=== PATIENT | female | born 1980 | race Caucasian/White ===

== ENCOUNTER 2016-12-31 11:31 | Emergency (ER) | payer OTHER ==
[~2016-12-31] VITALS: Ht 162.6 cm; Wt 55.1 kg
[2016-12-31 11:33] VITALS: TEMP 36.6; Ht 162.6 cm; Wt 55.1 kg
[2016-12-31] MEDS ORDERED: KETOROLAC TROMETHAMINE 30 MG/ML VIAL IV STA (11:57)
[2016-12-31] MEDS ORDERED: SODIUM CHLORIDE 0.9% 1000ML 1,000 ML IV STA ×2 (11:57)
[2016-12-31] MEDS ORDERED: ONDANSETRON INJ 2 MG/ML 2 ML VIAL IV STA (11:57)
[2016-12-31] MEDS ORDERED: METR-162 PO (12:17)
[2016-12-31] MEDS ORDERED: LACT10CA3 PO (12:17)
[2016-12-31 12:22] LABS: BASO % 0.3 %; BASO ABS # 0.02 K/uL (0-0.2); COMPLETE YES; EOS % 1.8 %; HEMATOCRIT 42.7 % (37-47); IG% 0.1 %; LYMPH % 26.2 %; LYMPH ABS # 1.76 K/uL (1.2-3.4); MEAN CELL VOLUME 86.3 fL (80-100); MEAN CORPUSCULAR HEMOGLOBIN 30.9 pg (25-34); MEAN CORPUSCULAR HGB CONC 35.8 g/dl (32-36); MEAN PLATELET VOLUME 9.3 fL (7.4-10.4); MONO % 6.7 %; NEUT % 64.9 %; PLATELET COUNT 287 K/uL (130-400); RED BLOOD COUNT 4.95 M/uL (4.2-5.4); WHITE BLOOD COUNT 6.73 K/uL (4.8-10.8)
[2016-12-31 12:42] LABS: CREATININE 0.79 mg/dl (0.60-1.20)
[2016-12-31 12:43] LABS: BUN/CREATININE RATIO 13.3 (10-20); POTASSIUM 4.2 mmol/L (3.5-5.1)
[2016-12-31 12:45] LABS: ALB/GLOB RATIO 1.2 (0.9-2)
[2016-12-31 13:10] LABS: URINE APPEARANCE CLEAR (CLEAR); URINE BILIRUBIN NEG (NEG); URINE COLOR DK YELLOW; URINE EPITHELIAL CELL AUTO >30 /lpf (0-5); URINE NITRITE NEG (NEG); URINE PH 5.5 (4.5-7.5); UROBILINOGEN NEG (NEG); ZZUR CULT IF INDIC CLEAN CATCH NO
[2016-12-31 13:11] LABS: MANUAL MICROSCOPIC REQUIRED? NO; REVIEW REQ? NO
--- NOTE | 2016-12-31 13:14 | EMERGENCY ROOM VISIT NOTE ---
History First contact with patient: 11:44 Chief Complaint: VOMITING Stated Complaint: VOMITING,DIARREAH,NAUSEA,C-DIFF History of Present Illness The patient is a 36 year old female who presents to the Emergency Room with complaints of vomiting and diarrhea. The patient reports that she took a 7 day course of Augmentin for a sinus infection 3 weeks ago and developed diarrhea soon afterward. She reports that she saw her primary care provider 3 days ago and they took a stool sample. They called her 2 days ago and told her that she had a positive C. difficile test. She was started on Flagyl at night. She has taken less than 48 hours worth of the medication. She states that she has had persistent diarrhea as well as a few episodes of vomiting and decreased appetite. She rates her overall discomfort a 5/10. She states she has crampy pain in the lower abdomen. She is concerned because she has not been able to keep any foods or fluids down. She denies any fevers/chills, chest pain, shortness of breath or urinary symptoms. Review of Systems A complete 10-point Review of Systems was discussed with the patient, with pertinent positives and negatives listed in the History of Present Illness. All remaining Review of Systems questions can be considered negative unless otherwise specified. Past Medical/Surgical History Medical Problems: (1) Asthma (2) Difficulty breathing (3) Right foot injury Family History Patient reports no known family medical history. Social History Smoking Status: Current Every Day Smoker Marital Status: single Housing Status: lives with family Current/Historical Medications Scheduled Lactobacillus-Inulin (Culturelle), 1 CAP PO BID Metronidazole (Flagyl), 500 MG PO TID Ondasetron Odt (Zofran Odt), 4 MG SL Q6H Allergies Coded Allergies: Erythromycin (Verified Allergy, Intermediate, vomiting, 12/31/16) Morphine (Verified Adverse Reaction, Intermediate, " makes me want to rip my skin off", 12/31/16) Physical Exam Vital Signs Date Time Temp Pulse Resp B/P Pulse Ox O2 Delivery O2 Flow Rate FiO2 12/31/16 14:17 66 18 102/50 100 12/31/16 13:44 64 16 99/47 100 Room Air 12/31/16 13:00 60 16 95/47 100 Room Air 12/31/16 11:33 36.6 93 16 124/76 99 Room Air Physical Exam VITALS: Vitals are noted on the nurse's note and reviewed by myself. Vital signs stable. GENERAL: This is a 36-year-old female, in no acute distress, nondiaphoretic, well-developed well-nourished. SKIN: Capillary reflex less than 2 seconds. HEENT: PERRLA. Mucous membranes moist. Neck is supple without nuchal rigidity. HEART: Regular rate and rhythm without murmurs gallops or rubs. LUNGS: Clear to auscultation bilaterally without wheezes, rales or rhonchi. ABDOMEN: Positive bowel sounds x 4. Soft, minimal tenderness over the lower abdomen. No guarding or rebound tenderness. NEURO: Patient was alert and oriented to person place and time. Medical Decision & Procedures Laboratory Results 12/31/16 12:11 Red Blood Count 4.95, Mean Corpuscular Volume 86.3, Mean Corpuscular Hemoglobin 30.9, Mean Corpuscular Hemoglobin Concent 35.8, Mean Platelet Volume 9.3, Neutrophils (%) (Auto) 64.9, Lymphocytes (%) (Auto) 26.2, Monocytes (%) (Auto) 6.7, Eosinophils (%) (Auto) 1.8, Basophils (%) (Auto) 0.3, Neutrophils # (Auto) 4.37, Lymphocytes # (Auto) 1.76, Monocytes # (Auto) 0.45, Eosinophils # (Auto) 0.12, Basophils # (Auto) 0.02 12/31/16 12:11 Test 12/31/16 12:11 12/31/16 12:40 White Blood Count 6.73 K/uL (4.8-10.8) Red Blood Count 4.95 M/uL (4.2-5.4) Hemoglobin 15.3 g/dL (12.0-16.0) Hematocrit 42.7 % (37-47) Mean Corpuscular Volume 86.3 fL (80-100) Mean Corpuscular Hemoglobin 30.9 pg (25-34) Mean Corpuscular Hemoglobin Concent 35.8 g/dl (32-36) Platelet Count 287 K/uL (130-400) Mean Platelet Volume 9.3 fL (7.4-10.4) Neutrophils (%) (Auto) 64.9 % Lymphocytes (%) (Auto) 26.2 % Monocytes (%) (Auto) 6.7 % Eosinophils (%) (Auto) 1.8 % Basophils (%) (Auto) 0.3 % Neutrophils # (Auto) 4.37 K/uL (1.4-6.5) Lymphocytes # (Auto) 1.76 K/uL (1.2-3.4) Monocytes # (Auto) 0.45 K/uL (0.11-0.59) Eosinophils # (Auto) 0.12 K/uL (0-0.5) Basophils # (Auto) 0.02 K/uL (0-0.2) RDW Standard Deviation 39.1 fL (36.4-46.3) RDW Coefficient of Variation 12.3 % (11.5-14.5) Immature Granulocyte % (Auto) 0.1 % Immature Granulocyte # (Auto) 0.01 K/uL (0.00-0.02) Anion Gap 10.0 mmol/L (3-11) Est Creatinine Clear Calc Drug Dose 83.4 ml/min Estimated GFR () 110.1 Estimated GFR (Non- 95.0 BUN/Creatinine Ratio 13.3 (10-20) Calcium Level 9.0 mg/dl (8.5-10.1) Total Bilirubin 0.5 mg/dl (0.2-1) Aspartate Amino Transf (AST/SGOT) 13 U/L (15-37) Alanine Aminotransferase (ALT/SGPT) 18 U/L (12-78) Alkaline Phosphatase 40 U/L (45-117) Total Protein 7.2 gm/dl (6.4-8.2) Albumin 3.9 gm/dl (3.4-5.0) Globulin 3.3 gm/dl (2.5-4.0) Albumin/Globulin Ratio 1.2 (0.9-2) Lipase 158 U/L (73-393) Urine Color DK YELLOW Urine Appearance CLEAR (CLEAR) Urine pH 5.5 (4.5-7.5) Urine Specific [place] 1.020 (1.000-1.030) Urine Protein NEG (NEG) Urine Glucose (UA) NEG (NEG) Urine Ketones 2+ (NEG) Urine Occult Blood NEG (NEG) Urine Nitrite NEG (NEG) Urine Bilirubin NEG (NEG) Urine Urobilinogen NEG (NEG) Urine Leukocyte Esterase SMALL (NEG) Urine WBC (Auto) 1-5 /hpf (0-5) Urine RBC (Auto) 0-4 /hpf (0-4) Urine Hyaline Casts (Auto) 1-5 /lpf (0-5) Urine Epithelial Cells (Auto) >30 /lpf (0-5) Urine Bacteria (Auto) NEG (NEG) Urine Test NEG (NEG) Medications Administered Medications (Trade) Dose Ordered Sig/Nelson Route Start Time Stop Time Status Last Admin Dose Admin Sodium Chloride 1,000 ml @ 999 mls/hr Q1H1M STAT IV 12/31/16 11:57 12/31/16 12:57 DC 12/31/16 12:37 999 MLS/HR Sodium Chloride (Nss 1000ml) 1,000 ml @ 999 mls/hr Q1H1M STAT IV 12/31/16 11:57 12/31/16 12:57 DC 12/31/16 12:38 999 MLS/HR Ondansetron HCl (Zofran Inj) 4 mg NOW STAT IV 12/31/16 11:57 12/31/16 12:00 DC 12/31/16 12:38 4 MG Ketorolac Tromethamine (Toradol Inj) 30 mg NOW STAT IV 12/31/16 11:57 12/31/16 12:00 DC 12/31/16 12:39 30 MG Medical Decision Differential diagnosis includes C. difficile diarrhea, bowel obstruction, colitis, appendicitis, cholecystitis, gastroenteritis, failed outpatient therapy , among others. The patient was evaluated as above. Labs were drawn and IV access was obtained. Imaging studies were performed and read by radiology as above. The patient was medicated with 2 L normal saline solution, 4 mg Zofran IV and 30 mg Toradol IV. The patient was reassessed multiple times during their stay in the emergency department and remained in stable condition. The patient is a 36-year-old female who presents today complaining of C. difficile. The patient had a positive C. difficile test 2 days ago. She has been on less than 48 hours and Flagyl. She has continued diarrhea as well as a few episodes of vomiting. She is concerned about dehydration. The patient's labs revealed no leukocytosis, anemia or concerning electrolyte abnormalities. Urinalysis was not suggestive of infection. Urinalysis did show ketones within the urine, likely due to mild dehydration. The patient felt much better after IV hydration and IV Zofran. I do not feel she has failed outpatient treatment at this time, as she has only been taking the Flagyl for less than 2 days. She was able to tolerate crackers and Gatorade. She was instructed to continue the Flagyl at home and return sooner for any worsening symptoms. She was given a prescription for Zofran and encouraged to continue to push fluids. Based on the patient's presentation, lab results, and imaging studies, I feel the patient is stable for outpatient treatment. The patient's case was reviewed with Dr. Hancock, ED attending physician, who agreed with my assessment and treatment plan. Discharge instructions were reviewed with the patient. The patient verbalized understanding of my assessment and treatment plan and was discharged home in good condition. Impression Primary Impression: C. difficile diarrhea Departure Information Dispostion Home / Self-Care Condition GOOD Prescriptions Ondasetron Odt (ZOFRAN ODT) 4 Mg Tab 4 MG SL Q6H for Nausea, #20 TAB Prov: Shanti Mathew ., SARITA 12/31/16 Referrals No Doctor, Assigned (PCP) Patient Instructions My [facility] Additional Instructions You have been treated in the Emergency Department for your C. difficile diarrhea and dehydration. You have been prescribed Zofran to be used for any nausea or vomiting. Take as prescribed. For pain control, you can use the following [id number] medicines (if >12 yo): - Regular strength (325mg/tab) Tylenol (acetaminophen) 2 tabs every 4-6 hours as needed. Do not exceed 12 tablets in a 24 hour period. Avoid taking more than 4 grams (4000 mg) of Tylenol per day. This includes any other sources of acetaminophen you may take on a regular basis. - Regular strength (200 mg/tab) Advil (ibuprofen) 1-2 tabs every 4-6 hours as needed. Do not exceed a dose of 3200 mg per day. Drink plenty of water and stay well hydrated. Follow-up with your primary care provider in 2-3 days for a recheck. Return to the emergency department if your symptoms persist despite treatment plan outlined above or if the following symptoms occur: Fevers, worsening abdominal pain, vomiting not relieved by the antinausea medication, or any other new/concerning symptoms.
[2016-12-31] MEDS ORDERED: ONDA4TAB10 SL (13:38)
[2016-12-31 14:17] VITALS: BP 102/50; PULSE 66; O2SAT 100
== END 2016-12-31 14:19 | disposition home or self-care (01) ==
LOC: C.EDB 11:32 → C.EDA 14:19
DX: A04.7 Enterocolitis due to Clostridium difficile (principal); J45.909 Unspecified asthma, uncomplicated; F17.200 Nicotine dependence, unspecified, uncomplicated; Z88.3 Allergy status to other anti-infective agents; Z88.5 Allergy status to narcotic agent

== ENCOUNTER 2022-02-26 10:06 | Observation (INO) ==
--- NOTE | 2022-01-14 13:54 | Anesthesiology Consultation ---
Date of Service January 14, 2022 Assessment & Plan (1) Encounter for pre-operative examination: Chart Review Chart Review: Acceptable Risk for Surgery (pending results of ECHO if available and preop Covid testing results ) and Patient NOT seen in Pre Admission Testing ECHO ordered by PCP for fatigue scheduled 01/21/22 at 1000am at [facility]. Will attempt to get results if available prior to surgery. -Will check EKG for DOS due to hypercholesteremia - Check test AM DOS Per nursing assessment 01/14/2022, patient denies any recent travel. No known Covid infection in the past 90 days. Patient is fully vaccinated for Covid. No known Covid positive exposures. Pt had recent URI- had abx and prednisone- feeling much better- did speak with patient on 01/14/22- pt will call if symptoms not resolved by DOS. Preop Covid testing scheduled 01/19/22= will await results. Pt seen by lipid clinic 01/04/22= No past cardiac history personally with p rojas. Does have positive family history for premature atherosclerosis on father side. Patient is active and has no exertional symptoms at this time. 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 Triglycerides 109, total cholesterol 262, non-HDL cholesterol 204, HDL cholesterol 58, LDL cholesterol 182. Patient started on atorvastatin and Zetiawe will recheck lipid in 3 months. Pt seen by PCP 12/07/21= seen for follow up to discuss blood work- labs ordered for severe fatigue. Low Vit D. ECHO ordered for fatigue. Started on Vitamin D supplement. History Surgery Operation Date: 01/22/22 08:30 Proposed Procedures p Total Laparoscopic Hysterectomy, Left Salphingo-oophorectomy, Cystoscopy, Possible Laparatomy - Delmer Leos MD Height/Weight Height: 5 ft 4.25 in Weight: 61.235 kg Allergies Allergy/AdvReac Type Severity Reaction Status Date / Time erythromycin base Allergy Intermediate vomiting Verified 01/14/22 11:47 morphine AdvReac Intermediate " makes me Verified 01/14/22 11:47 want to rip my skin off" fentanyl AdvReac migraine, Verified 01/14/22 11:47 n/v Medications Home Medications Medication Instructions Recorded Confirmed Last Taken albuterol sulfate 90 mcg/actuation 1 inh INHALATION QID PRN 01/14/22 01/14/22 Unknown aerosol inhaler amoxicillin 875 mg-potassium 1 tab PO BID 01/14/22 01/14/22 Unknown clavulanate 125 mg tablet atorvastatin 40 mg tablet (Lipitor) 40 mg PO QAM 01/14/22 01/14/22 Unknown azelastine 137 mcg (0.1 %) nasal 1 spray INTRANASAL BID 01/14/22 01/14/22 Unknown spray aerosol ergocalciferol (vitamin D2) 1,250 1,250 mcg PO WK 01/14/22 01/14/22 Unknown mcg (50,000 unit) capsule (Vitamin D2) ezetimibe 10 mg tablet (Zetia) 10 mg PO QAM 01/14/22 01/14/22 Unknown pramipexole 0.5 mg tablet 0.5 mg PO HS 01/14/22 01/14/22 Unknown prednisone 10 mg tablets in a dose 10 mg PO UD 01/14/22 01/14/22 Unknown pack triamcinolone acetonide 55 mcg 1 spray INTRANASAL BID 01/14/22 01/14/22 Unknown nasal spray aerosol Past Medical History Medical History (Updated 01/14/22 @ 13:52 by Lissy Magana PA-C) Asthma Rare use of PRN inh Dysmenorrhea Essential tremor GERD (gastroesophageal reflux disease) Diet controlled History of anesthesia reaction Wakes up either angry/combative/emotional History of gestational diabetes History of kidney stones HLD (hyperlipidemia) Monoallelic mutation of LDLR gene Menorrhagia Migraines PCOS (polycystic ovarian syndrome) RLS (restless legs syndrome) Upper respiratory infection Reason for abx/steroid - reports symptoms improving Uterine fibroid Past Surgical History Surgical History H/O uvulectomy History of colonoscopy History of umbilical hernia repair S/P section x 2 S/P tonsillectomy and adenoidectomy Social History Smoking Status: Former smoker Do You Dip or Chew Tobacco: No Smoking End Date: 2 years ago Hx Alcohol Use: No Hx Substance Use: No substance use type: does not use Testing Laboratory Results 01/11/22= WBC: 11.39 H/H: 14.4/42.9 PLATELETS: 347 SODIUM: 136 POTASSIUM: 4.7 CHLORIDE: 101 CO2: 24 BUN: 17 CREATININE: 0.9 GLUCOSE: 99
[~2022-02-26 10:06] MED LIST: CITRIC ACID/SODIUM CITRATE 15 ML UDC PO SCH; LACTATED RINGER'S 1,000 ML IV SCH; LR 15ML/HR IV SCH; ceFAZolin 2,000 MG in SYRINGE 0 ML IV SCH; ceFAZolin 2000MG 2,000 MG/15 ML SYR IV SCH
[2022-02-26] MEDS ORDERED: BUPIVACAINE 0.5 % 5 MG/1 ML MPF 30ML VIAL ONE (10:33)
[2022-02-26] MEDS ORDERED: EPINEPHrine INJ 1 MG/ML AMP ONE (10:33)
[2022-02-26] MEDS ORDERED: PROPOFOL IV EMULSION 10 MG/ML 20 ML VIAL IV ONE (10:41)
[2022-02-26] MEDS ORDERED: GLYCOPYRROLATE 0.2 MG/ML VIAL ONE (10:41)
[2022-02-26] MEDS ORDERED: ONDANSETRON INJ 2 MG/ML 2 ML VIAL ONE (10:41)
[2022-02-26] MEDS ORDERED: NEOSTIGMINE METHYLSULFATE 1 MG/ML 10ML VIAL ONE (10:41)
[2022-02-26] MEDS ORDERED: MIDAZOLAM HCL 1 MG/ML 2ML VIAL ONE (10:41)
[2022-02-26] MEDS ORDERED: ROCURONIUM BROMIDE 10 MG/ML 5 ML VIAL IV ONE ×3 (10:41→13:34)
[2022-02-26] MEDS ORDERED: DEXAMETHASONE SOD INJ 4 MG/ML VIAL ONE (10:41)
[2022-02-26] MEDS ORDERED: SCOPOLAMINE 1 MG TDSY TD ONE ×2 (10:52→10:58)
[2022-02-26] MEDS ORDERED: HYDROmorphone INJ 2 MG/ML SYR/VIAL ONE (11:06)
[2022-02-26 11:08] LABS: Basophils # (auto) 0.02 K/uL (0-0.2); Basophils % (auto) 0.3 %; Eosinophils # (auto) 0.14 K/uL (0-0.5); Eosinophils % (auto) 2.3 %; Hematocrit (blood only) 41.9 % (37-47); Hemoglobin 14.3 g/dL (12.0-16.0); Immature Granulocytes # (auto) 0.01 K/uL (0.00-0.02); Immature Granulocytes % (auto) 0.2 %; Lymphocytes # (auto) 1.77 K/uL (1.2-3.4); Lymphocytes % (auto) 29.4 %; Mean Corpuscular Hemoglobin 30.5 pg (25-34); Mean Corpuscular Volume 89.3 fL (80-100); Monocytes # (auto) 0.41 K/uL (0.11-0.59); Monocytes % (auto) 6.8 %; Neutrophils # (auto) 3.68 K/uL (1.4-6.5); Platelet Count 268 K/uL (130-400); RDW Coefficient of Variation 12.6 % (11.5-14.5); RDW Standard Deviation 40.9 fL (36.4-46.3); Red Blood Count 4.69 M/uL (4.2-5.4); White Blood Count 6.03 K/uL (4.8-10.8)
[2022-02-26] MEDS ORDERED: DexMEDEtomidine HCL IV 100 MCG/ML VIAL IV ONE (11:10)
[2022-02-26] MEDS ORDERED: ACETAMINOPHEN 1000 MG/100 ML IV IV ONE (11:10)
[2022-02-26 11:14] LABS: Mean Corpuscular Hgb Conc 34.1 g/dL (32-36)
[2022-02-26] MEDS ORDERED: PROMETHAZINE HCL 6.25 MG in SODIUM CHLORIDE 0.9% 50 ML IV PRN (12:17)
[2022-02-26] MEDS ORDERED: ONDANSETRON INJ 2 MG/ML 2 ML VIAL IV PRN ×2 (12:17→15:53)
[2022-02-26] MEDS ORDERED: ATROPINE SULFATE 0.1 MG/ML 10ML SYR IV PRN (12:17)
[2022-02-26] MEDS ORDERED: ePHEDrine sulfate 50 MG/ML AMP IV PRN (12:17)
--- NOTE | 2022-02-26 12:31 | History & Physical Bridge Note ---
Date of Service February 26, 2022 History & Physical Bridge Note I have examined the patient, reviewed the History & Physical and in the interval since the performance of the History & Physical I have noted the following changes of clinical significance: no changes noted
[2022-02-26] MEDS ORDERED: METHYLENE BLUE 0.5% 10 ML VIAL ONE (14:45)
[2022-02-26] MEDS ORDERED: FLOSEAL HEMOSTATIC MATRIX 10ML TOP ONE (14:46)
[2022-02-26] MEDS ORDERED: KETOROLAC 30 MG/ML VIAL ONE (15:15)
[2022-02-26] MEDS: HYDROmorphone INJ 1 MG/ML SYRINGE IV PRN ×4 (15:39→15:56)
[2022-02-26] MEDS ORDERED: MAGNESIUM HYDROXIDE SUSP 30 ML UDC PO PRN (15:53)
[2022-02-26] MEDS ORDERED: ZOLPIDEM TARTRATE 5 MG TAB PO PRN (15:53)
[2022-02-26] MEDS ORDERED: PROMETHAZINE HCL 25 MG in SODIUM CHLORIDE 0.9% 50 ML IV PRN (15:53)
[2022-02-26] MEDS ORDERED: bisacodyL 10 MG SUPP PR PRN (15:53)
[2022-02-26] MEDS ORDERED: PROMETHAZINE HCL 12.5 MG in SODIUM CHLORIDE 0.9% 50 ML IV PRN (15:53)
[2022-02-26] MEDS ORDERED: SIMETHICONE 80 MG CHEW PO PRN (15:53)
[2022-02-26] MEDS ORDERED: oxyCODONE/ACETAMINOPHEN 5mg/325mg TAB PO PRN (15:53)
--- NOTE | 2022-02-26 16:00 | Anesthesiology Progress Note ---
Date of Service February 26, 2022 Anesthesia Post Procedure Vital Signs Vital Signs: Temp Pulse Pulse Resp BP Pulse Ox 02/26/22 15:50 61 15 119/64 98 02/26/22 15:40 66 14 119/68 99 02/26/22 15:34 97.0 F L 74 12 116/68 98 02/26/22 10:22 98.4 F 58 L 18 126/72 99 Pain Intensity Abdomen: Pain Intensity: 8 Transfer of Care Handoff Completed per policy Notes Mental Status: alert / awake / arousable and participated in evaluation Patient Amnestic to Procedure: Yes Nausea / Vomiting: adequately controlled Pain: adequately controlled Airway Patency, RR, SpO2: stable & adequate BP & HR: stable & adequate Hydration State: stable & adequate Anesthetic Complications: no major complications apparent and Pt Satisfied with anesthetic care
--- NOTE | 2022-02-26 17:33 | Operative Report (OR) ---
DATE OF SURGERY: 02/26/2022. INDICATION FOR SURGERY: This is a 41-year-old with menorrhagia and chronic pelvic pain. POSTOPERATIVE DIAGNOSES: This is a 41-year-old with menorrhagia and chronic pelvic pain. SURGEON: Delmer Leos MD. RAWHIDE TRIMMER: VAN Leiva. ATTESTATION FOR RAWHIDE TRIMMER: Network Associate was necessary to help with retraction and manipulation of instr uments in order to provide for safe surgery. ESTIMATED BLOOD LOSS: 10 mL. INTRAVENOUS FLUIDS: 1300 mL. URINE OUTPUT: 100 mL of clear urine at the end of procedure. ANESTHESIA: General. COMPLICATIONS: None. DRAINS: None. SPECIMEN: Uterus, left tube and ovary as well as right fallopian tube. DESCRIPTION OF PROCEDURE: The patient was taken to the operating room where she was prepped and drap ed in normal sterile fashion in dorsal lithotomy position after timeout was called. A Chun catheter was placed in the bladder. A weighted speculum was placed in the vagina. Damon retractor was used t o retract the anterior part of the vagina. A VCare uterine manipulator was placed and sutured into t he cervix. This was to help manipulate the uterus during laparoscopy. Attention was paid to the abdominal part of the procedure where a supraumbilical incision was made an d carried down to the fascia with an 11 blade. A Veress needle was introduced into the abdomen at a 45-degree angle while tenting up the abdomen. A water drop and suction test was performed. Abdomen was insufflated with 3 L of CO2 gas. Three more accessory ports were placed on the left, two ____ po rts and one 11 mm port respectively. These were all placed under direct visualization after the supr aumbilical placement of the trocar was performed. These were nonbladed trocars and once again were a ll done under direct visualization. Findings of the abdomen showed a 10-week size uterus, left tube and ovary had some adhesions. The pa tient had prior section and bladder was adherent to the uterus. On the right, the fallopian tube and ovary appeared grossly normal. Rest of the pelvic exam was unremarkable. LigaSure was pas sed through the left accessory port. The left round ligament, fallopian tube and infundibulopelvic wa s grabbed and fulgurated in sequence. There was good hemostasis. This allowed for opening of the le ft anterior leaf of the broad ligament. Same procedure was performed on the contralateral side. The re was good hemostasis. The anterior broad ligament was dissected and carried out to the mid-section of the vesicouterine per itoneum over the bladder using the Harmonic scalpel. Same procedure was performed on the contralater al side. Because of previous section, there were some adhesions, but this dissection was ca refully performed without difficulty. The posterior broad ligament peritoneum was carefully dissecte d also from both sides over the uterosacral arch in order to display the ureters laterally. Using traction and countertraction, the [place] retractor and irrigation probe was used to further d issect the bladder off the lower segment of the uterus. Bladder pillars and pubovesical fascia was d issected as well. The Harmonic scalpel was used to obtain hemostasis when needed. Uterine manipulat or was now palpable over the vaginal tissue. The right uterine pedicle was skeletonized and coagulat ed with LigaSure. Good hemostasis was obtained. Same procedure was performed on the contralateral s marci. The cardinal ligaments were transected on both sides. Once good hemostasis was obtained, colpo quinn was performed using the LigaSure hook from both sides. Uterus was removed from the vagina while still attached to the uterine manipulator. The bulb multi line claims adjuster d to the uterine manipulator was reinserted into the vagina to establish pneumoperitoneum. With a gr asper, the remaining section of the left fallopian tube and ovary was positioned anteromedially and t ransected. On the right, the right fallopian tube was transected and the ovary on the right is conse rved. These were all removed through the vagina. EndoStitch closure device was passed through the 10 mm port on the left, and using the [place] grasp er for traction, the colpotomy closure was performed. Uterosacral ligaments incorporated into the c losure in order to decrease the risks of prolapse. Lapra-Tys were used with the EndoStitch. Once ag ain, hemostasis was obtained. A 10 mm trocar was removed and a Maynor-Paco was placed through th e 10 mm port and the 10 mm port was closed under direct visualization with Vicryl. The remainder of the 5 mm incision sites are closed with Dermabond. Attention was paid to the cystoscopy part of the procedure. The patient had been given indigo krysta e earlier. A cystoscope was placed into the bladder after removing the catheter. There was no traum a or damage to the bladder. There are no lesions or masses seen in the bladder. A bubble was presen t in the bladder, showing a closed loop. Both ureteral orifices were seen. Urine was seen injecting from both of them without difficulty. Scope was removed. All instruments were removed from the abdomen and the vagina as stated above and accounted for x2 inc luding sponges and needles. The patient was returned to recovery in stable condition. Job ID: [id number]
[2022-02-26] MEDS: IBUPROFEN 600 MG TAB PO PRN (19:44)
[2022-02-26] MEDS: oxyCODONE/ACETAMINOPHEN 5mg/325mg TAB PO PRN (19:44)
[2022-02-26] MEDS: DOCUSATE SODIUM 100 MG CAP PO SCH (20:01)
[2022-02-26] MEDS: LACTATED RINGER'S 1,000 ML IV SCH (22:54)
[2022-02-27] MEDS: CHECK SCOPOLAMINE PATCH PLACEMENT SCH ×2 (00:10→08:49)
[2022-02-27] MEDS: IBUPROFEN 600 MG TAB PO PRN ×3 (00:22→09:12)
[2022-02-27] MEDS: oxyCODONE/ACETAMINOPHEN 5mg/325mg TAB PO PRN ×2 (04:41→09:13)
[2022-02-27] MEDS: LACTATED RINGER'S 1,000 ML IV SCH (06:13)
--- NOTE | 2022-02-27 06:41 | Electrocardiogram Report ---
Test Reason : Blood Pressure : / mmHG Vent. Rate : 060 BPM Atrial Rate : 060 BPM P-R Int : 160 ms QRS Dur : 082 ms QT Int : 436 ms P-R-T Axes : 039 056 062 degrees QTc Int : 436 ms Normal sinus rhythm with sinus arrhythmia Normal ECG When compared with ECG of 15-FEB-2020 16:41, No significant change was found Confirmed by Maciel Muro ([id number]) on 02/27/2022 6:41:22 AM Referred By: Delmer Leos Confirmed By:Maciel Muro
[2022-02-27 08:38] LABS: Hematocrit (blood only) 33.5 % (37-47); Hemoglobin 11.5 g/dL (12.0-16.0); Immature Granulocytes # (auto) 0.02 K/uL (0.00-0.02); Immature Granulocytes % (auto) 0.2 %; Lymphocytes # (auto) 1.79 K/uL (1.2-3.4); Lymphocytes % (auto) 18.2 %; Mean Corpuscular Hemoglobin 30.7 pg (25-34); Mean Corpuscular Hgb Conc 34.3 g/dL (32-36); Mean Corpuscular Volume 89.3 fL (80-100); Mean Platelet Volume 10.4 fL (7.4-10.4); Monocytes # (auto) 0.89 K/uL (0.11-0.59); Monocytes % (auto) 9.1 %; Neutrophils # (auto) 7.12 K/uL (1.4-6.5); Neutrophils % (auto) 72.5 %; Platelet Count 242 K/uL (130-400); RDW Coefficient of Variation 12.8 % (11.5-14.5); RDW Standard Deviation 42.1 fL (36.4-46.3); Red Blood Count 3.75 M/uL (4.2-5.4); White Blood Count 9.82 K/uL (4.8-10.8)
[2022-02-27] MEDS: DOCUSATE SODIUM 100 MG CAP PO SCH (08:49)
[2022-02-27 09:09] LABS: BUN Creatinine Ratio 16.7 (10-20); Calcium 8.4 mg/dl (8.5-10.1); Creatinine Clr Calc Pharmacy 75.4 ml/min; Est GFR (African American) 98.7 ml/min; Est GFR (Non-African American) 85.1 ml/min
--- NOTE | 2022-02-27 09:12 | Gynecologic Progress Note ---
Date of Service February 27, 2022 Assessment & Plan (1) S/P laparoscopic hysterectomy: Plan: pt doing well no complaints d/c home with instructions Admission and Anticipated Discharge Date Admission Date: February 26, 2022 Results & Data ([facility]) Vital Signs (Past 12 Hours) Vital Signs Temp Pulse Resp BP Pulse Ox 02/27/22 04:30 37.0 C 56 L 16 117/61 100 02/27/22 00:20 36.7 C 64 17 121/73 98
--- NOTE | 2022-02-27 10:17 | Discharge Summary (DS) ---
DATE OF ADMISSION: 02/26/2022. DATE OF DISCHARGE: 02/27/2022. CHIEF COMPLAINT: This is a 41-year-old with menorrhagia and left-sided chronic pelvic pain, who unde rwent total laparoscopic hysterectomy with left salpingo-oophorectomy and right salpingectomy. Detai ls of surgery is in the surgical record and surgical notes. Surgery otherwise was unremarkable. The patient did well, was kept in observation and has been discharged to home this morning in stable con dition. PAST MEDICAL HISTORY: No history of diabetes, hypertension, or asthma. History of anxiety. PAST SURGICAL HISTORY: Two previous sections. ALLERGIES: None. FAMILY HISTORY: Noncontributory. SOCIAL HISTORY: The patient denies tobacco, drug or alcohol use. REVIEW OF SYSTEMS: Negative except as dictated in the HPI. PHYSICAL EXAMINATION: VITAL SIGNS: Stable this morning. HEART: S1 and S2, regular rhythm and rate. LUNGS: Clear to auscultation bilaterally. ABDOMEN: Nontender, nondistended. Incision sites are clean, dry, and intact. EXTREMITIES: No cyanosis, clubbing or edema. CONDITION ON DISCHARGE: Stable. OPERATIONS: Total laparoscopic hysterectomy with left salpingo-oophorectomy and right salpingectomy. DISCHARGE CONDITION: Stable. PLAN ON DISCHARGE: The patient is discharged home with instructions regarding activity, diet, and craig hospital appointment. Job ID: [id number]
== END 2022-02-27 10:40 | disposition home or self-care (01) ==
LOC: ASU 10:06 → 4E2 10:06
DX: N92.0 Excessive and frequent menstruation with regular cycle; G89.29 Other chronic pain; R10.2 Pelvic and perineal pain